=== PATIENT | female | born 1970 | race Caucasian/White ===

== ENCOUNTER 2019-04-27 09:35 | Outpatient (CLI) | payer BC, OTHER ==
[~2019-04-27 09:35] MED LIST: CETI-102 PO; COLLAGEN PO; MULT1TAB73 PO
[2019-04-27 10:14] LABS: BASOPHILS % (AUTO) 0.6 % (0.0-2.0); HEMATOCRIT 38.4 % (31.2-41.9); LYMPHOCYTES # (AUTO) 1.6 K/uL (20.0-40.0); LYMPHOCYTES % (AUTO) 29.8 % (20.5-51.5); MEAN CORPUSCULAR HEMOGLOBIN 30.8 uug (24.7-32.8); MEAN CORPUSCULAR HGB CONC 34 g/dL (32.3-35.6); MEAN CORPUSCULAR VOLUME 91.3 fL (75.5-95.3); MONOCYTES # (AUTO) 0.4 K/uL (2.0-10.0); MONOCYTES % (AUTO) 7.4 % (0.0-11.0); NEUTROPHILS # (AUTO) 3.3 K/uL (1.8-8.9); NEUTROPHILS % (AUTO) 62.2 % (38.5-71.5); PLATELET COUNT (AUTO) 329 K/uL (179-408); WHITE BLOOD COUNT (AUTO) 5.3 K/uL (3.8-11.8)
[2019-04-28 12:15] LABS: ESTRADIOL 34.9 pg/mL (.); FOLLICLE STIMULATION HORMONE 44.6 mIU/mL (.)
[2019-04-28 13:06] LABS: CANCER AG, 125 10.5 U/mL (0.0-38.1)
== END 2019-04-27 23:59 | disposition home or self-care (01) ==
LOC: LAB 09:35
PROVIDERS: ATTEND Obstetrics & Gynecology
DX: N92.6 Irregular menstruation, unspecified (principal)
CPT/HCPCS: 36415; 82670; 83001; 85025